=== PATIENT | female | born 1990 | race American Indian/Alaskan Native ===

== ENCOUNTER 2017-04-13 16:39 | Emergency (ER) | payer MEDICAID ==
[2017-04-13 16:39] VITALS: BMI 31.6
[2017-04-13 17:00] VITALS: RESP 18; TEMP 98; O2SAT 98
--- NOTE | 2017-04-13 17:44 | C.PDOC ---
History Of Present Illness 27F c/o bleeding from c/s wound site. she says she had c[place] [facility] [place] to [place]- 34w[place], then was dc after 5 day stay. saw ob early march and had luis carlos removed and was told she had wound infection- took abx and this improved. april 07 went back to [place] [facility] [place] bleeding which resolved on its own. today bleeding started again. only mild discomfort no sig pain. intermittent small amount vag dc since delivery. no abd pain, vomiting, or fever. pmh DM on metformin. denies any other pmh. psh 2 prior c/s no complications with those. Time Seen by Provider: 04/13/17 17:26 Chief Complaint (Nursing): Abnormal Skin Integrity Past Medical History Vital Signs: Last Vital Signs Temp 98.0 F 04/13/17 16:59 Pulse 100 H 04/13/17 16:59 Resp 18 04/13/17 16:59 BP 109/81 04/13/17 16:59 Pulse Ox 98 04/13/17 17:46 - Medical History PMH: Denies: Depression - [facility] Procedures REMOV INTRALUM EAR FB (05/13/12) Family History: States: Other Other Family History: nc - Social History Hx Tobacco Use: No Hx Alcohol Use: Yes Hx Substance Use: No - Immunization History Hx Influenza Vaccination: No Review Of Systems Constitutional: Negative for: Fever Cardiovascular: Negative for: Chest Pain Respiratory: Negative for: Cough, Shortness of Breath Gastrointestinal: Negative for: Nausea, Vomiting, Abdominal Pain Genitourinary: Negative for: Dysuria Neurological: Negative for: Weakness, Numbness, Headache Physical Exam - Physical Exam Appears: Well, Non-toxic, No Acute Distress Skin: Warm, Dry Cardiovascular: Rhythm Regular Respiratory: Normal Breath Sounds, No Decreased Breath Sounds Gastrointestinal/Abdominal: Soft, No Tenderness, Other (well-healed surgical wound with 2cm raised area with a small punctate area oozing blood when expressed. no erythema, warmth, fluctuance, or purulent drainage.) ED Course And Treatment O2 Sat by Pulse Oximetry: 98 Medical Decision Making Medical Decision Making: very small amount of oozing from wound easily controlled with gentle pressure. consulted OBGYN Dr Whitt who came down and evaluated the pt in the ED. [address] Jose Eduardo who rec keflex 500mg TID for 1 week and follow up in clinic on Thursday. Disposition - Disposition Disposition: HOME/ ROUTINE Disposition Time: 18:16 Condition: GOOD - Clinical Impression Clinical Impression: Bleeding from wound
--- NOTE | 2017-04-13 18:24 | CP.PCM.CON ---
History of Present Illness - History of Present Illness History of Present Illness: 27 yr s/p c/s 03/27 herer c/o bleeding from incision nstarted few days after c[place]s. [place] [facility] [place]. pt states she had sex yesterday night and bleeding started 1 pm, no pain. pt had diabetic,min lochia, no n/v, tolerating deit,voiding. obhx 3 x c/s pmh dm type 11 med metformin all nkda psh c/s x 3 soch smoking abd soft,non tender incision redness, erythemarous, some bleeding/fluid from the centre of incsiom. wound cultures done after cleaning with h2o2. bleeding stopped after pressure. Review of Systems - Review of Systems Systems not reviewed;Unavailable: Acuity of Condition Past Patient History - Infectious Disease Hx of Infectious Diseases: None - Past Social History Smoking Status: Light Smoker < 10 Cigarettes Daily - ENDOCRINE/METABOLIC Hx Diabetes Mellitus Type 2: Yes - PSYCHIATRIC Hx Depression: No Hx Substance Use: No Meds Home Medications: Home Medication List Medication Instructions Recorded Confirmed Type Cephalexin [cephalexin] 500 mg PO TID #30 cap 04/13/17 Rx Allergies/Adverse Reactions: Allergies Allergy/AdvReac Type Severity Reaction Status Date / Time shellfish derived Allergy Verified 04/13/17 16:58 Physical Exam - GI/Abdominal Exam GI & Abdominal Exam: Soft, Tenderness (non tender) Results - Vital Signs Recent Vital Signs: Last Vital Signs Temp 98.0 F 04/13/17 16:59 Pulse 100 H 04/13/17 16:59 Resp 18 04/13/17 16:59 BP 109/81 04/13/17 16:59 Pulse Ox 98 04/13/17 18:17 Assessment & Plan - Assessment and Plan (Free Text) Assessment: 27 yr hg/o diabettic s/p c/s with wound infection Plan: plan dc home after cleaning with h2o2 and pressure dressing start keflex 500 mg q 8 hr clean at home h2o2 no sex f/u dr gupta in 2-3 days. pt underytand and agrees if any fever > 101 come to er - Date & Time Date: 04/13/17 Time: 18:40
[2017-04-13 18:46] VITALS: BP 112/69; PULSE 89
== END 2017-04-13 18:46 | disposition home or self-care (01) ==
LOC: C.ER 16:39
DX: O90.0 Disruption of cesarean delivery wound (principal)